=== PATIENT | male | born 1995 | race African-American/Black ===

== ENCOUNTER 2021-10-15 07:12 | Emergency (ER) | payer OTHER ==
[2021-10-15 07:21] VITALS: RESP 20; TEMP 98.1
[2021-10-15] MEDS ORDERED: KETOROLAC 15 MG/ML 1 ML VIAL IM STA (07:27)
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
[2021-10-15 08:50] VITALS: BP 118/60; PULSE 70
== END 2021-10-15 08:50 | disposition home or self-care (01) ==
LOC: EC 07:12
DX: S60.221A Contusion of right hand, initial encounter (principal); F17.209 Nicotine dependence, unspecified, with unspecified nicotine-induced disorders; W22.09XA Striking against other stationary object, initial encounter
CPT/HCPCS: 73110; 73130; 99283; 96372; J1885